=== PATIENT | male | born 1965 ===

== ENCOUNTER 2017-09-03 10:01 | Emergency (ER) | payer OTHER ==
[2017-09-03 10:09] VITALS: BP 167/86; PULSE 64; RESP 18; TEMP 98.4; O2SAT 99
[2017-09-03] MEDS ORDERED: Lidocaine 2% Inj (20ml) INFIL STA (10:38)
[2017-09-03] MEDS ORDERED: Lidocaine Hydrochloride 5 ML INJ ONE (10:43)
--- NOTE | 2017-09-03 10:45 | RAD ---
PROCEDURE: Left middle finger radiographs. HISTORY: r/o fx COMPARISON: None. TECHNIQUE: AP radiograph of the left hand, as well as spot oblique and lateral images of left middle finger were obtained. FINDINGS: LEFT MIDDLE FINGER: Left middle finger distal phalanx -posttraumatic amputation with 2 to 3 mm separation of the major fracture fragment from the donor site. Apart from this 2 mm fracture and distraction no displacement noted JOINTS: Normal. SOFT TISSUES: Normal. OTHER FINDINGS: None. IMPRESSION: Left middle finger distal phalanx -posttraumatic amputation with 2 to 3 mm separation of the major fracture fragment from the donor site. Apart from this 2 mm fracture and distraction no displacement noted Comments: Study marked for PA review.
[2017-09-03] MEDS ORDERED: Tdap Vaccine 0.5 ml Vial (10-64 yrs) IM ONE ×2 (11:37→11:56)
[2017-09-03] MEDS ORDERED: Bacitracin 500 Units/gm Oint Foilpak UD ONE (11:42)
--- NOTE | 2017-09-03 13:13 | C.PDOC ---
History Of Present Illness 51 y/o male comes into the ED complaining of pain to the left third finger. States a piece of plywood fell on the finger. Of note patient is right hand dominant. No other complaints. Time Seen by Provider: 09/03/17 10:10 Chief Complaint (Nursing): Abnormal Skin Integrity History Per: Patient History/Exam Limitations: no limitations Onset/Duration Of Symptoms: Hrs Current Symptoms Are (Timing): Still Present Past Medical History Reviewed: Historical Data, Nursing Documentation, Vital Signs Vital Signs: Last Vital Signs Temp 98.4 F 09/03/17 10:07 Pulse 64 09/03/17 10:07 Resp 18 09/03/17 10:07 BP 167/86 H 09/03/17 10:07 Pulse Ox 99 09/03/17 13:24 Family History: States: No Known Family Hx - Social History Hx Alcohol Use: No Hx Substance Use: No Review Of Systems Musculoskeletal: Positive for: Hand Pain (L 3rd digit) Skin: Positive for: Lesions (to L 3rd digit) Neurological: Negative for: Weakness, Numbness Physical Exam - Physical Exam Appears: Well, Non-toxic, No Acute Distress Skin: Normal Color, Warm Head: Atraumatic, Normacephalic Eye(s): bilateral: Normal Inspection Oral Mucosa: Moist Neck: Normal ROM, Supple Chest: Symmetrical Respiratory: No Accessory Muscle Use Extremity: Normal ROM, Capillary Refill (less than 2sec), Other (Left 3rd digit : distal portion of digit appears angulated, nail bed lifted, with lacerations to the dorsal aspect (1 cm) and the lateral aspect (0.5 cm) of the digit) Pulses: Left Radial: Normal, Right Radial: Normal Neurological/Psych: Oriented x3, Normal Speech, Normal Motor, Normal Sensation ED Course And Treatment O2 Sat by Pulse Oximetry: 99 (RA) Pulse Ox Interpretation: Normal - Other Rad XR L Finger X-Ray: Read By Radiologist Interpretation: FINDINGS: LEFT MIDDLE FINGER: Left middle finger distal phalanx -posttraumatic amputation with 2 to 3 mm separation of the major fracture fragment from the donor site. Apart from this 2 mm fracture and distraction no displacement noted. JOINTS: Normal. SOFT TISSUES: Normal. OTHER FINDINGS: None. IMPRESSION: Left middle finger distal phalanx - posttraumatic amputation with 2 to 3 mm separation of the major fracture fragment from the donor site. Apart from this 2 mm fracture and distraction no displacement noted - Physician Consult Information Time Consulting Physician Contacted: 10:29 Physician Contacted: Abbey Diaz Outcome Of Conversation: Case discussed with Dr. Diaz, hand specialist on-call , who viewed images and recommends sutures be placed to tack down the nail, with 1 suture to each laceration. Patient instructed to call Emily's office tomorrow for follow up appointment. Laceration - Laceration Repair nail bed, L 3rd digit Wound Length (In cm): 2 Wound Cleansed With: Sterile Saline Anesthesia: Lidocaine 1% (digital block) Wound Examination: Irrigated With Saline Wound Closure: Suture (x2) Suture Technique And Material Used: Nylon (3:0) Wound Complexity: Intermediate dorsal aspect Wound Length (In cm): 1 Description Of Wound: Linear Wound Examination: Irrigated With Saline Wound Closure: Suture (x1) Suture Technique And Material Used: Nylon (4:0) Wound Complexity: Simple lateral aspect Wound Length (In cm): 0.5 Description Of Wound: Linear Wound Cleansed With: Sterile Saline Wound Examination: Irrigated With Saline Wound Closure: Suture (x1) Suture Technique And Material Used: Nylon (4:0) Wound Complexity: Simple Medical Decision Making Medical Decision Making: Impression: Laceration, left finger Plan: --X-ray left 3rd digit --Tdap booster given --Laceration repair as per Dr. Diaz's recommendation Laceration repaired without difficulty. Patient counseled regarding wound care and the need for follow up. Upon discharge, patient is medically stable and verbalizes understanding of discharge plan. Disposition Discussed With : Abbey Diaz Doctor Will See Patient In The: Office Counseled Patient/Family Regarding: Studies Performed, Diagnosis, Need For Followup, Rx Given - Disposition Referrals: Abbey Diaz MD [Staff Provider] - Disposition: HOME/ ROUTINE Disposition Time: 11:30 Condition: IMPROVED Additional Instructions: FRANCOISE YADAV, thank you for letting us take care of you today. Your provider was Shant Lundberg DO and you were treated for CUT ON FINGER. The emergency medical care you received today was directed at your acute symptoms. If you were prescribed any medication, please fill it and take as directed. It may take several days for your symptoms to resolve. Return to the Emergency Department if your symptoms worsen, do not improve, or if you have any other problems. Please contact your doctor or call one of the physicians/clinics you have been referred to that are listed on the Patient Visit Information form that is included in your discharge packet. Bring any paperwork you were given at discharge with you along with any medications you are taking to your follow up visit. Our treatment cannot replace ongoing medical care by a primary care provider outside of the emergency department. Thank you for allowing the [facility] team to be part of your care today. Take antibiotics as directed. Keep finger/dressing clean and dry at all times. Follow up with Dr. Diaz, the hand surgeon, in 2-3 days for re-evaluation and wound check. Prescriptions: Cephalexin [cephalexin] 500 mg PO TID #21 cap Ibuprofen [Motrin] 600 mg PO Q6 PRN #20 tab PRN Reason: Pain, Moderate (4-7) Instructions: Laceration Repair With Stitches (DC) Forms: [employer] (Mongolian) - POA Present On Arrival: Falls Or Trauma - Clinical Impression Clinical Impression: Crush injury to finger, Finger laceration - Scribe Statement The provider has reviewed the documentation as recorded by the Scribe (Irma Meade) Provider Attestation: All medical record entries made by the Scribe were at my direction and personally dictated by me. I have reviewed the chart and agree that the record accurately reflects my personal performance of the history, physical exam, medical decision making, and the department course for this patient. I have also personally directed, reviewed, and agree with the discharge instructions and disposition.
== END 2017-09-03 12:00 | disposition home or self-care (01) ==
LOC: C.ER 10:01
DX: S67.193A Crushing injury of left middle finger, initial encounter (principal); S61.313A Laceration without foreign body of left middle finger with damage to nail, initial encounter; W22.8XXA Striking against or struck by other objects, initial encounter